=== PATIENT | male | born 1975 | race Caucasian/White ===

== ENCOUNTER 2016-11-28 17:20 | Emergency (ER) | payer OTHER ==
[~2016-11-28] VITALS: Ht 172.7 cm; Wt 86.0 kg
[~2016-11-28 17:20] MED LIST: AMOXICILLIN500 MG PO; AMOXIL500 M1 OR; ANAPROX275 MG OR; FLEXERIL10 MG PO; LORTAB 10-325 M1 TAB PO; LORTAB 5 OR; MOTRIN800 MG PO; NAPROXEN375 MG OR; NO; PENICILLN VK500 MG OR; PERCOCET 5/325M1 TAB OR; PERCOCET1 TA1 OR; ROBAXIN-750750 MG OR
[2016-11-28] MEDS ORDERED: CLINDAMYCIN300 M1 PO (17:44)
[2016-11-28] MEDS ORDERED: HYDROCO/APAP1 TA9 PO (17:44)
[2016-11-28 17:50] VITALS: BP 144/84
[2016-11-29] MEDS ORDERED: LORTAB 10-325 M1 TAB PO (22:09)
[2016-11-29] MEDS ORDERED: AMOXICILLIN875 MG PO (22:09)
== END 2016-11-28 17:50 | disposition home or self-care (01) | DRG 159 ==
LOC: ED 17:20
DX: K08.89 Other specified disorders of teeth and supporting structures (principal); F17.210 Nicotine dependence, cigarettes, uncomplicated

== ENCOUNTER 2016-11-29 19:42 | Emergency (ER) | payer OTHER ==
[~2016-11-29] VITALS: Ht 172.7 cm; Wt 91.0 kg
[~2016-11-29 19:42] MED LIST changes: +CLINDAMYCIN300 M1 PO; +HYDROCO/APAP1 TA9 PO
[2016-11-29] MEDS ORDERED: LORTAB 10-325 M1 TAB PO (22:09)
[2016-11-29] MEDS ORDERED: AMOXICILLIN875 MG PO (22:09)
[2016-11-29 23:00] VITALS: BP 129/77
== END 2016-11-29 23:00 | disposition left against medical advice (07) | DRG 563 ==
LOC: ED 19:42
PROC: 0HTRXZZ Resection of Toe Nail, External Approach (ICD-10-PCS; principal; 2016-11-29)
DX: S92.421A Displaced fracture of distal phalanx of right great toe, initial encounter for closed fracture (principal); S91.211A Laceration without foreign body of right great toe with damage to nail, initial encounter; W22.8XXA Striking against or struck by other objects, initial encounter; Y92.008 Other place in unspecified non-institutional (private) residence as the place of occurrence of the external cause; Z91.19 Patient's noncompliance with other medical treatment and regimen

== ENCOUNTER 2016-11-30 10:17 | Emergency (ER) | payer OTHER ==
[~2016-11-30] VITALS: Ht 172.7 cm; Wt 95.0 kg
[~2016-11-30 10:17] MED LIST changes: +AMOXICILLIN875 MG PO
[2016-11-30 11:17] VITALS: BP 128/61
== END 2016-11-30 11:22 | disposition home or self-care (01) | DRG 563 ==
LOC: ED 10:17
DX: S92.401B Displaced unspecified fracture of right great toe, initial encounter for open fracture (principal); X58.XXXA Exposure to other specified factors, initial encounter